=== PATIENT | female | born 1995 | race Caucasian/White ===

== ENCOUNTER 2016-08-03 23:08 | Emergency (ER) | payer BC, OTHER ==
[2016-08-04 00:07] LABS: ABSOLUTE NEUTROPHIL COUNT 4.4 K/mm3 (1.8-7.7); BASO % 0.5 % (0.2-1.0); EOS # 0.1 (0.0-0.5); EOS % 1.2 % (0.9-2.9); HEMOGLOBIN 11.5 gm/l (12.0-16.0); IMM NEUT # 0.1 K/mm3 (0-0.2); IMM NEUT% 1.1 % (0-1); LYMPH # 1.4 (1.0-4.8); LYMPH % 21.5 % (15-45); MEAN CELL VOLUME 88.6 fl (81.0-99.0); MEAN CORPUSCULAR HEMOGLOBIN 29.1 pg (27.0-31.0); MEAN CORPUSCULAR HGB CONC 32.9 g/dl (33.0-37.0); MEAN PLATELET VOLUME 9.3 fl (7.4-10.4); MONO # 0.6 (0.0-0.8); MONO % 8.9 % (4-12); NEUT % 66.8 % (43-75); PLATELET COUNT 194 K/mm3 (130-400); RED CELL DISTRIBUTION WIDTH 13.2 % (11.5-14.5)
[2016-08-04] MEDS ORDERED: LACTATED RINGERS 1,000 ML ONE (00:09)
[2016-08-04] MEDS ORDERED: ONDANSETRON 4 MG/2ML 2 ML VIAL ONE (00:09)
[2016-08-04 00:29] LABS: ALB/GLOB RATIO 1.1 (>1.0); ALBUMIN 3.6 gm/dL (3.5-5.7); CALCIUM 8.6 mg/dL (8.6-10.3)
== END 2016-08-04 00:59 | disposition home or self-care (01) ==
LOC: ED 23:08
DX: K92.0 Hematemesis (principal); R19.7 Diarrhea, unspecified
CPT/HCPCS: 85025; 80053; 99283 ×2; 96374; 96361; J2405; J7120